=== PATIENT | male | born 1965 | race Two or more races ===

== ENCOUNTER 2024-12-07 09:51 | Inpatient (IN) | payer MEDICAID, OTHER ==
[~2024-12-07] VITALS: Ht 165.1 cm; Wt 75.5 kg
[2024-12-07 11:00] VITALS: PULSE 85; RESP 17; O2SAT 97
--- NOTE | 2024-12-07 11:11 | ED.PDOC ---
History of Present Illness HPI Comments 59 year old male presents to the ED with chief complaint of chest pain and dizziness. Patient reports that he has been experiencing chest pain with associated cough, dizziness, weakness, and pain behind the eyes for the past 15 days. Patient relays that he is currently not taking any medication and drinks ETOH daily. Patient denies any N/V/D, SOB, headache, abdominal pain, or fever. Chief Complaint: General Weakness Time Seen by MD: 11:08 Primary Care Provider: none Reviewed Notes: Nurses Notes, Medications, Allergies Allergies: Coded Allergies: NO KNOWN ALLERGIES (Unverified , 12/07/24) Information Source: Patient Mode of Arrival: Ambulatory Severity: Moderate Timing: Days Duration: Since onset Past Medical History PAST MEDICAL HISTORY: Denies Surgical History: Denies all surgeries Family History Family History: Reviewed,noncontributory to illness Social History Smoker: Non-Smoker Alcohol: Heavy Drugs: Denies Drug Use Lives In: Home Constitutional: reports: weakness; denies: chills, diaphoresis, fatigue, fever, malaise, sweats, others EENTM: reports: eye pain; denies: blurred vision, double vision, ear bleeding, ear discharge, ear drainage, ear pain, ear ringing, eye redness, hearing loss, mouth pain, mouth swelling, nasal discharge, nose bleeding, nose congestion, nose pain, photophobia, tearing, throat pain, throat swelling, voice changes, others Respiratory: reports: cough; denies: hemoptysis, orthopnea, SOB at rest, shortness of breath, SOB with excertion, stridor, wheezing, others Cardiovascular: reports: chest pain; denies: dizzy spells, diaphoresis, Dyspnea on exertion, edema, irregular heart beat, left arm pain, lightheadedness, palpitations, PND, syncope, others Gastrointestinal: denies: abdomen distended, abdominal pain, blood streaked bowels, constipated, diarrhea, dysphagia, difficulty swallowing, hematemesis, melena, nausea, poor appetite, poor fluid intake, rectal bleeding, rectal pain, vomiting, others Genitourinary: denies: burning, dysuria, flank pain, frequency, hematuria, incontinence, penile discharge, penile sore, pain, testicle pain, testicle swell ing, urgency, others Neurological: reports: dizziness; denies: fainting, headache, left sided numbness, left sided weakness, numbness, paresthesia, pre-existing deficit, right sided numbness, right sided weakness, seizure, speech problems, tingling, tremors, weakness, others Musculoskeletal: denies: back pain, gout, joint pain, joint swelling, muscle pain, muscle stiffness, neck pain, others Integumetry: denies: bruises, change in color, change in hair/nails, dryness, laceration, lesions, lumps, rash, wounds, others Allergic/Immunocompromised: denies: Difficulty Healing, Frequent Infections, Hives, Itching, others Hematologic/Lymphatic: denies: anemia, blood clots, easy bleeding, easy bruising, swollen glands, others Endocrine: denies: excessive hunger, excessive sweating, excessive thirst, excessive urination, flushing, intolerance to cold, intolerance to heat, unexplained weight gain, unexplained weight loss, others Psychiatric: denies: anxiety, bipolar disorder, depression, hopeless, panic disorder, schizophrenia, sleepless, suicidal, others All Other Systems: Reviewed and Negative Physical Exam General Appearance: Moderate Distress, Normal HEENT: Normal ENT Inspection, PERRL/EOMI Neck: Full Range of Motion, Non-Tender, Normal, Normal Inspection Respiratory: Chest Non-Tender, Lungs Clear, No Accessory Muscle Use, No Respiratory Distress, Normal Breath Sounds Cardiovascular: No Edema, No JVD, No Murmur, No Gallop, Normal Peripheral Pulses, Regular Rate/Rhythm Breast Exam: Deferred Gastrointestinal: No Organomegaly, Non Tender, No Pulsatile Mass, Normal Bowel Sounds, Soft Genitalia: Deferred Pelvic: Deferred Rectal: Deferred Extremities: No calf tenderness, Normal capillary refill, Normal inspection, Normal range of motion, Non-tender, No pedal edema Musculoskeletal : Apperance: Normal Neurologic: Alert, drapery estimator II-XII nml as Tested, No Motor Deficits, Normal Affect, Normal Mood, No Sensory Deficits Cerebellar Function: Normal Reflexes: Normal Skin: Dry, Normal Color, Warm Peripheral Pulses: 3+ Radial (R), 3+ Radial (L) Lymphatic: No Adenopathy Was a procedure done? Was a procedure done?: No Differential Dx Considerations may include: Anemia Electrolyte imbalance X-Ray, Labs, Meds, VS Vital Signs Date Time Temp Pulse Resp B/P (MAP) Pulse Ox O2 Delivery O2 Flow Rate FiO2 12/07/24 11:00 85 17 97 Room Air* 0 21 12/07/24 11:00 98.2 85 17 160/86 (110) 97 98.2 12/07/24 10:34 99.5 93 20 137/83 (101) 95 Lab Test 12/07/24 11:24 12/07/24 10:31 12/07/24 10:27 Range/Units White Blood Count Pending Red Blood Count Pending Hemoglobin Pending Hematocrit Pending Mean Corpuscular Volume Pending Mean Corpuscular Hemoglobin Pending Mean Corpuscular Hemoglobin Concent Pending Red Cell Distribution Width Pending Platelet Count Pending Mean Platelet Volume Pending Neutrophils (%) (Auto) Pending Lymphocytes (%) (Auto) Pending Monocytes (%) (Auto) Pending Basophils (%) (Auto) Pending Neutrophils # (Auto) Pending Lymphocytes # (Auto) Pending Monocytes # (Auto) Pending Sodium Level Pending Potassium Level Pending Chloride Level Pending Carbon Dioxide Level Pending Anion Gap Pending Blood Urea Nitrogen Pending Creatinine Pending Glomerular Filtration Rate Calc Pending BUN/Creatinine Ratio Pending Serum Glucose Pending Calcium Level Pending Troponin I High Sensitivity Pending POC Glucose 176 H 70-106 mg/dl Urine Color Pending Urine Clarity Pending Urine pH Pending Urine Specific [place] Pending Urine Protein Pending Urine Ketones Pending Urine Blood Pending Urine Nitrite Pending Urine Bilirubin Pending Urine Urobilinogen Pending Urine Leukocyte Esterase Pending Urine RBC Pending Urine Microscopic WBC Pending Urine Squamous Epithelial Cells Pending Urine Bacteria Pending Urine Glucose Pending Patient alert. Complaining of chest pain. Generalized weakness. Vitals stable. EKG reviewed does not show any acute changes. Blood sugar slightly elevated. Denies use of any medication. Blood pressure elevated. He does use alcohol. Cardiac risk factors. Was given aspirin. Echocardiogram. Cardiology consultation. Explained to the patient. Continue cardiac monitoring. Time of 1ST Reevaluation: 12:08 Reevaluation 1ST: Unchanged Patient Education/Counseling: Diagnosis, Treatment Family Education/Counseling: No Family Present Additional Information I reviewed the following notes from patient's past medical encounters: None The following tests were ordered, and results were reviewed by me: CBC, BMP, UA Additional Information was gathered from interviewing the following independent historians: None I reviewed and agreed with the following test results read by other providers: None I discussed treatment and results with medical personnel. Departure 1 Departure Time of Disposition: 11:41 Impression: Primary Impression: Chest pain of unknown etiology Additional Impressions: Hypertensive urgency Uncontrolled diabetes mellitus Qualified Codes: E13.65 - Other specified diabetes mellitus with hyperglycemia Disposition: ADMITTED INPATIENT Admit to: Med Surg Condition: Guarded Critical Care Note Critical Care Time?: Yes (45 min-critical care time only) Stability Stability form required: No Heart Score Heart Score: Heart Score Response (Comments) Value History Moderate Suspicious 1 EKG Normal 0 Age 45-64 1 Risk Factors 1 or 2 risk factors 1 Troponin Normal limit 0 Total 3 I personally scribed for PIPER MORRIS MD ([email or web address]) on 12/07/24 at 11:11. Electronically submitted by Kade Orozco ([email or web address]). PIPER MORRIS MD Dec 07, 2024 11:11
[2024-12-07 11:14] LABS: Urine Bacteria None Seen /hpf (None Seen)
[2024-12-07 11:19] LABS: Urine Blood Negative /uL (Negative); Urine Clarity Clear (Clear); Urine Color Yellow (Yellow); Urine Protein, UAD Negative (Negative); Urine Specific Gravity 1.012 (1.001-1.035); Urine Squamous Epithelial Cell FEW /hpf (<5); Urine Urobilinogen 4 mg/dL (Negative); Urine WBC 1 /HPF (0-3); Urine pH 6.5 (5.0-9.0)
[2024-12-07 11:43] LABS: Basophils # (auto) 0 10 ^3/uL (0-0.2); Eosinophils # (auto) 0.1 10 ^3/uL (0-0.8); Eosinophils % (auto) 0.7 % (0.0-7.0); Lymphocytes # (auto) 1.5 10 ^3/uL (0.4-5.4); Monocytes # (auto) 0.7 10 ^3/uL (0-1.3); Neutrophils # (auto) 4.8 10 ^3/uL (1.6-8.6); Platelet Count (auto) 87 10^3/uL (140-450); White Blood Cell 7.1 10^3/uL (4.4-10.8)
[2024-12-07 11:45] LABS: Basophils % (auto) 0.6 % (0.0-2.0); Hemoglobin 13.2 g/dL (13.5-17.5); Lymphocytes % (auto) 21.1 % (10.0-50.0); Mean Corpuscular Hemoglobin 37.9 pg (28.0-32.0); Mean Corpuscular Hgb Conc. 34.8 g/dL (32.0-36.0); Mean Corpuscular Volume 108.9 fL (80.0-100.0); Monocytes % (auto) 9.7 % (0.0-12.0); Neutrophils % (auto) 67.9 % (37.0-80.0); Nucleated Red Blood Cells % 0.4 %; Red Blood Cells 3.49 10^6/uL (4.5-5.90); Red Cell Distribution Width 14.8 % (11.8-14.3)
[2024-12-07 11:47] LABS: Chloride 104 mmol/L (98-107); Sodium 138 mmol/L (136-145)
[2024-12-07 11:48] LABS: Anion Gap 8 (5-15); Carbon Dioxide 26 mmol/L (20-31)
[2024-12-07 12:01] LABS: BUN/Creatinine Ratio 8.6 (10.0-20.0); Blood Urea Nitrogen < 5 mg/dL (9-23); Calcium 8.6 mg/dL (8.7-10.4); Glucose 125 mg/dL (74-106); Potassium 3.5 mmol/L (3.5-5.1)
[2024-12-07] MEDS: ASPirin 325 MG TAB PO ONE (12:08)
[2024-12-07] MEDS: cloNIDine HCL 0.1 MG TAB PO ONE (12:09)
[2024-12-07] MEDS ORDERED: ONDANSETRON HCL 4 MG/2 ML VIAL IV PRN (15:45)
[2024-12-07] MEDS ORDERED: ACETAMINOPHEN 325 MG TAB PO PRN (15:45)
[2024-12-07] MEDS ORDERED: MORPHINE SULFATE INJ 2 MG/ml SYRG IV PRN (15:45)
[2024-12-07] MEDS ORDERED: NITROGLYCERIN 0.4 MG SL TAB SL PRN (15:45)
--- NOTE | 2024-12-07 15:57 | DVHHP2 ---
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 Patient also reports weakness, flu, cough, palpitations, and diarrhea. Patient states that he has been having blurry vision and it is hard for him to see after 5:00 p.m. Upon examination his eyes were bloodshot red and he states that when he gets sick or cough it happens. Patient also reports that he drinks 1 beer a day, does not use illicit drugs, and does not smoke. Patient denies any recent sick contacts, fever, chills, headaches, and recent trauma or injury. Past Surgical History: Other (Dental work in [place]) Family History: None Smoke: No ALCOHOL: occassional Drugs: None Lives: Roommate Domestic Violence: Neg Review of Systems Constitutional: Yes: Weakness, Other (Dizziness); No: Fever, Chills, Sweats, Malaise Eyes: Pain, Vision change, Redness; No: Conjunctivae inflammation, Eyelid inflammation, Other ENT: No: Ear pain, Ear discharge, Nose pain, Nose discharge, Nose congestion, Mouth pain, Mouth swelling, Throat pain, Throat swelling, Other Respiratory: Cough; No: Dry, Shortness of breath, SOB with excertion, Wheezing, Hemoptysis, Pleuritic Pain, Sputum, Wheezing, Other Cardiovascular: Chest Pain, Palpitations; No: Orthopnea, Paroxysmal Noc. Dyspnea, Edema, Lt Headedness, Other Gastrointestinal: Nausea, Vomiting, Diarrhea; No: Abdominal Pain, Constipation, Melena, Hematochezia, Other Genitourinary: No Dysuria, No Frequency, No Incontinence, No Hematuria, No Retention, No Other Musculoskeletal: No: other, neck pain, shoulder pain, arm pain, back pain, hand pain, leg pain, foot pain Skin: No: Rash, Lesions, Jaundice, Bruising, Other Neurological: No: Weakness, Numbness, Incoordination, Change in speech, Confusion, Seizures, Other Allergies: Coded Allergies: NO KNOWN ALLERGIES (Unverified , 12/07/24) Exam Vital Signs Vital Signs Date Time Temp Pulse Resp B/P (MAP) Pulse Ox O2 Delivery O2 Flow Rate FiO2 12/07/24 13:50 98.3 76 18 141/79 (99) 98 98.3 12/07/24 11:00 Room Air* 0 21 General Appearance: Alert, Oriented X3, Cooperative, No acute distress HEENT: Atraumatic, PERRLA, EOMI, Mucous membr. moist/pink Respiratory: Clear to auscultation, Normal air movement Cardiovascular: Regular rate, Normal S1, Normal S2, No murmurs Abdominal: Normal bowel sounds, Soft, No tenderness, No hepatospenomegaly, No masses Extremities: No clubbing, No cyanosis, No edema, Normal pulses, No tenderness/swelling Skin: No rashes, No breakdown, No significant lesion Neuro: Normal gait, Normal speech, Strength at 5/5 X4 ext, Normal tone, Sensation intact Psych/Mental Status: Mental status NL, Mood NL Labs/Xrays Labs Test 12/07/24 11:24 12/07/24 10:31 12/07/24 10:27 Range/Units White Blood Count 7.1 4.4-10.8 10^3/uL Red Blood Count 3.49 L 4.5-5.90 10^6/uL Hemoglobin 13.2 L 13.5-17.5 g/dL Hematocrit 38.0 L 41.0-53.0 % Mean Corpuscular Volume 108.9 H 80.0-100.0 fL Mean Corpuscular Hemoglobin 37.9 H 28.0-32.0 pg Mean Corpuscular Hemoglobin Concent 34.8 32.0-36.0 g/dL Red Cell Distribution Width 14.8 H 11.8-14.3 % Platelet Count 87 L 140-450 10^3/uL Mean Platelet Volume 7.4 6.9-10.8 fL Neutrophils (%) (Auto) 67.9 37.0-80.0 % Lymphocytes (%) (Auto) 21.1 10.0-50.0 % Monocytes (%) (Auto) 9.7 0.0-12.0 % Eosinophils (%) (Auto) 0.7 0.0-7.0 % Basophils (%) (Auto) 0.6 0.0-2.0 % Neutrophils # (Auto) 4.8 1.6-8.6 10 ^3/uL Lymphocytes # (Auto) 1.5 0.4-5.4 10 ^3/uL Monocytes # (Auto) 0.7 0-1.3 10 ^3/uL Eosinophils # (Auto) 0.1 0-0.8 10 ^3/uL Basophils # (Auto) 0 0-0.2 10 ^3/uL Nucleated Red Blood Cells 0.4 % Sodium Level 138 136-145 mmol/L Potassium Level 3.5 3.5-5.1 mmol/L Chloride Level 104 98-107 mmol/L Carbon Dioxide Level 26 20-31 mmol/L Anion Gap 8 5-15 Blood Urea Nitrogen < 5 L 9-23 mg/dL Creatinine 0.58 L 0.700-1.30 mg/dL Glomerular Filtration Rate Calc 114 >90 mL/min BUN/Creatinine Ratio 8.6 L 10.0-20.0 Serum Glucose 125 H 74-106 mg/dL Calcium Level 8.6 L 8.7-10.4 mg/dL Troponin I High Sensitivity 3 L </=54 ng/L POC Glucose 176 H 70-106 mg/dl Urine Color Yellow Yellow Urine Clarity Clear Clear Urine pH 6.5 5.0-9.0 Urine Specific [place] 1.012 1.001-1.035 Urine Protein Negative Negative Urine Ketones Negative Negative Urine Blood Negative Negative /uL Urine Nitrite Negative Negative Urine Bilirubin Negative Negative Urine Urobilinogen 4 H Negative mg/dL Urine Leukocyte Esterase Negative Negative /uL Urine RBC 1 0 - 3 /hpf Urine Microscopic WBC 1 0-3 /HPF Urine Squamous Epithelial Cells Few <5 /hpf Urine Bacteria None seen None Seen /hpf Urine Glucose 1+ H Normal mg/dL Assessment/Plan Assessment/Plan Assessment/Plan: Chest pain rule out cardiac ischemia Palpitations Blurred vision Thrombocytopenia Labs Chest x-ray UA Antihypertensive Aspirin given in ED Troponin negative Influenza test COVID test TSH Lipid panel UDS CT head Echo ACS protocol FOUZIA A.m. labs Rounding team to consider cardiac consult if suspecting cardiac structural changes Hyperglycemia Hemoglobin A1c ISS and Accu-Cheks FEN/PPX Diet Hep-Lock DVT ppx - not indicated patient ambulating PUD prophylaxis not indicated patient no history of GI bleed or GERD Discussed plan of care with patient and nurse No home medications to reconcile Admit to tele Plan discussed with: Patient My Orders Orders - DEMARCUS SIGALA COMBINE DRIVER Procedure Category Date Status Time Head Without Contrast CT 12/07/24 Logged 15:35 Rapid Influenza A&B LAB 12/07/24 Transmitted 15:35 Covid19 Antigen Maia LAB 12/07/24 Transmitted Blood Alcohol LAB 12/07/24 Transmitted 15:35 Admit ADMIT 12/07/24 Transmitted 15:35 Allergies LATONIA 12/07/24 Transmitted 15:35 Code Status CODE 12/07/24 Transmitted 15:35 Ondansetron Hcl PHA 12/07/24 Logged (Zofran) 15:45 Complete Blood Count LAB 12/08/24 Verified 04:00 Comprehensive LAB 12/08/24 Verified Metabolic Panel 04:00 Cardiac DIET 12/07/24 Transmitted Diet-2gna,Lofat,Lochol Dinner Acetaminophen Tablet PHA 12/07/24 Logged (Tylenol Tablet) 15:45 Nitroglycerin PHA 12/07/24 Logged Sublingual (Ntrostat 15:45 Morphine Sulfate PHA 12/07/24 Transmitted Injection 15:45 Stat Ekg For Chest [facility] 12/07/24 Transmitted Pain 15:35 Notify Md Of Changes [facility] 12/07/24 Transmitted From Base 15:35 Caramel Candy Maker For [facility] 12/07/24 Transmitted 24 Hours 15:35 Emergency Dysrhythmia [facility] 12/07/24 Transmitted Protocol 15:35 Rhythm Strips Once [facility] 12/07/24 Transmitted Every Shift 15:35 Oxygen By Nasal RT 12/07/24 Transmitted Cannula 15:35 Thyroid Stimulating LAB 12/07/24 Transmitted Hormone 15:35 Drug Screen LAB 12/07/24 Transmitted 15:35 Lipid Panel LAB 12/07/24 Transmitted 15:35 Echo 2d Mode Cardiac US 12/07/24 Logged DOP 15:35 Atorvastatin (Lipitor) PHA 12/07/24 Transmitted 22:00 Date of Service: Dec 07, 2024 Billing Provider: DEMARCUS SIGALA Common Visit Codes: [id number] INP/OBS CARE (HIGH) DEMARCUS SIGALA Dec 07, 2024 15:57
--- NOTE | 2024-12-07 16:07 | DVH ---
EXAM: CT HEAD WITHOUT CONTRAST HISTORY: dizziness COMPARISON: None TECHNIQUE: Axial images of the head were obtained and reformatted in coronal and sagittal planes. All CT scans at this medical facility are performed using dose modulation techniques as appropriate t o a performed exam including the following: Automated exposure control was utilized; adjustment of th e MA and/or KV according to patient size; and use of iterative reconstruction technique. CT Dose: CTDI volume is 54.63 mGy. Dose-length product is 967.38 mGy*cm FINDINGS: There is no evidence of acute intracranial hemorrhage, mass, mass effect midline shift. There is no h ydrocephalus or extra-axial fluid collection. Tang-white matter differentiation is maintained. The visualized paranasal sinuses and mastoid air cells are clear. The calvarium is intact. IMPRESSION: 1. No acute intracranial process. HS:Y
--- NOTE | 2024-12-07 16:14 | DVH ---
CHEST RADIOGRAPH Indication: chest pain Technique: Single frontal view of the chest was obtained Comparison: None FINDINGS: Lines and Tubes: None Lungs: Probable hiatal hernia in the retrocardiac area. Pleura: No effusion. No pneumothorax. Cardiomediastinal contours: Unremarkable Bones: No acute osseous abnormality. IMPRESSION: 1. No acute cardiopulmonary disease. 2. Probable hilar hernia in the retrocardiac area.
[2024-12-07 16:49] LABS: Blood Alcohol 72.3 mg/dL (<10)
[2024-12-07 20:10] VITALS: PULSE 70; RESP 16; O2SAT 97
[2024-12-07 20:40] LABS: COVID19 ANTIGEN SOFIA FIA NEGATIVE (NEGATIVE); Rapid Influenza A Negative (Negative); Rapid Influenza B Negative (Negative)
[2024-12-07] MEDS: ATORVASTATIN 20 MG TAB PO SCH (23:53)
[2024-12-08] VITALS (9 sets, daily range): BP systolic 131–150; BP diastolic 49–82; PULSE 77–88; RESP 17–93; TEMP 98–99.5; O2SAT 93–98
[2024-12-08 05:42] LABS: Basophils # (auto) 0 10 ^3/uL (0-0.2); Basophils % (auto) 0.4 % (0.0-2.0); Eosinophils # (auto) 0.1 10 ^3/uL (0-0.8); Eosinophils % (auto) 1.7 % (0.0-7.0); Lymphocytes # (auto) 1.5 10 ^3/uL (0.4-5.4); Monocytes # (auto) 0.6 10 ^3/uL (0-1.3); Neutrophils # (auto) 3.6 10 ^3/uL (1.6-8.6); White Blood Cell 5.8 10^3/uL (4.4-10.8)
[2024-12-08 05:45] LABS: Lymphocytes % (auto) 25.4 % (10.0-50.0); Mean Corpuscular Hemoglobin 38.5 pg (28.0-32.0); Mean Corpuscular Hgb Conc. 35.3 g/dL (32.0-36.0); Mean Corpuscular Volume 108.8 fL (80.0-100.0); Monocytes % (auto) 10.8 % (0.0-12.0); Neutrophils % (auto) 61.7 % (37.0-80.0); Nucleated Red Blood Cells % 0.3 %; Platelet Count (auto) 70 10^3/uL (140-450); Red Blood Cells 3.13 10^6/uL (4.5-5.90); Red Cell Distribution Width 14.6 % (11.8-14.3)
[2024-12-08 05:57] LABS: Alanine Aminotransferase 20 U/L (7-40); Anion Gap 4 (5-15); Carbon Dioxide 26 mmol/L (20-31); Chloride 106 mmol/L (98-107); Glucose 100 mg/dL (74-106); Sodium 136 mmol/L (136-145)
[2024-12-08 05:58] LABS: Total Protein 6.5 g/dL (5.7-8.2)
[2024-12-08 06:03] LABS: Albumin 2.6 g/dL (3.2-4.8); Alkaline Phosphatase 246 U/L (46-116); Aspartate Aminotransferase 90 U/L (13-40); BUN/Creatinine Ratio 9.8 (10.0-20.0); Bilirubin, Total 3.7 mg/dL (0.2-1.0); Blood Urea Nitrogen < 5 mg/dL (9-23); Calcium 8.3 mg/dL (8.7-10.4)
--- NOTE | 2024-12-08 12:32 | DVHSR ---
APPROVED REPORT EXAM: Two-dimensional and M-mode echocardiogram with Doppler and color Doppler. Blood Pressure: 141/79 mmHg INDICATION Chest Pain RISK FACTORS Height: 5'5", Weight: 171 DIMENSIONS LVDd4.6 (3.8-5.7cm)LA (2D)5.0 (1.9-4.0cm)Aortic Root3.0 (2.0-3.7cm) LVDs3.2 (2.5-4.0cm)LA (MM) (1.9-4.0cm)Aortic Cusp Exc1.5 (1.5-2.0cm) EF (%) 60.0 (55-70%)Rt. Atrium4.5 (1.9-4.0cm)Asc. Aorta cm IVSd0.9 (0.7-1.1cm)RV (D) (1.8-2.4cm) PWd1.0 (0.7-1.1cm) Mitral Valve MitralMitral Stenosis E wave1.08m/sMV Mean GR.mmHg A wave0.73m/sMV Peak GR.mmHg E/A ratio1.52D MVAcm2 DECEL [id number] 1/2 Timems Aortic Valve Aortic ValveAortic Stenosis V11.16m/Navin Mean GR.7mmHg V21.79m/Navin Peak GR.13mmHg LVOT Diameter1.8 (1.8-2.4cm)Doppler AVA1.65cm2 Pulmonic Valve V21.13m/s Tricuspid Valve TR Velocity3.13m/s [id number] LEFT VENTRICLE The left ventricle is of normal size. Wall thickness is normal. Ejection fraction is normal and is estimated at 60-65%. There is grade II diastolic dysfunction. E to E prime ratio is in the indeterm inate range. RIGHT VENTRICLE The right ventricle is mildly to moderately dilated in size. Systolic function is normal. ATRIA The left atrium is moderately dilated in size. Right atrium is moderately dilated in size. Not well visualized. MITRAL VALVE Normal structure and function. No significant mitral regurgitation. PULMONIC VALVE Likely normal. TRICUSPID VALVE Normal structure and function. There is mild tricuspid regurgitation. PA systolic pressure is estim ated at 40-50 mm Hg. AORTIC VALVE Normal in structure and function. GREAT VESSELS The aortic root is of normal size. Proximal ascending aorta is not visualized. PERICARDIAL EFFUSION No significant pericardial effusion. IVC is not well visualized. Conclusion The study is technically limited. Normal left ventricular size and systolic function. Ejection fraction is estimated at 60-65%. Dilated right ventricle with preserved systolic function. Biatrial enlargement. Grade II diastolic dysfunction. No hemodynamically significant valvular disease. PA systolic pressure is estimated at 40-50 mm Hg.
--- NOTE | 2024-12-08 14:25 | DVHPNRES ---
Progress Note Objective vital signs Vital Sign Date Time Temp Pulse Resp B/P (MAP) Pulse Ox O2 Delivery O2 Flow Rate FiO2 12/08/24 13:00 98.6 80 17 144/67 (92) 95 98.6 12/08/24 08:00 Room Air* 0 21 Total Intake and Output 12/07/24 12/07/24 12/08/24 15:00 23:00 07:00 Intake Total 0 ml Balance 0 ml medications Current Medications Medications Dose Ordered Sig/Yue Route Start Time Stop Time Status Last Admin Dose Admin Ondansetron HCl 4 mg Q4HP PRN IV 12/07/24 15:45 Acetaminophen 650 mg Q6HP PRN PO 12/07/24 15:45 Nitroglycerin 0.4 mg Q5MINP PRN SL 12/07/24 15:45 Morphine Sulfate 2 mg Q30M PRN IV 12/07/24 15:45 Atorvastatin Calcium 10 mg HS PO 12/07/24 22:00 12/07/24 23:53 10 MG Losartan Potassium 50 mg DAILY PO 12/09/24 10:00 laboratory and microbiology Laboratory Tests 12/08/24 05:20 Test 12/08/24 05:20 Range/Units Serum Glucose 100 74-106 mg/dL My Orders My Orders Orders - DEON BALDWIN Procedure Category Date Status Time LIVER US 12/08/24 Taken 09:01 Electrocardigram EKG 12/08/24 Logged 09:03 Losartan Tablet PHA 12/09/24 In Process (Cozaar Tablet) 10:00 DEON BALDWIN RESIDENT Dec 08, 2024 14:25
--- NOTE | 2024-12-08 14:31 | DVH ---
INDICATION: rule out cirrhosis TECHNIQUE: Multiple real-time sonographic images of the abdomen were obtained. COMPARISON: None FINDINGS: Increased echogenicity of the hepatic parenchyma suggesting steatosis. Ascites right upper quadrant The liver measures 19.3 cm. No intrahepatic biliary ductal dilatation is noted. The gallbladder wall measures 11.6 mm and is thickened. No gallstones or sludge is seen. The commo n duct measures 0.48 cm and is unremarkable. No pericholecystic fluid is noted. Negative ultrasound Zhou's sign Right kidney measures 11.9 cm. The pancreas is normal with ultrasound appearance IMPRESSION: 1. Hepatomegaly 19.3 cm with parenchymal changes suggesting steatosis. 2. Gallbladder wall thickening. Most likely due to a small amount of ascites in the right upper quadr ant No cholelithiasis. Negative ultrasound zhou's sign. 3. Ascites right upper quadrant
--- NOTE | 2024-12-08 14:33 | ECG ---
[facility] Test Date: 2024-12-08 Test Time: 13:06:34 Pat Name: AZAR HUMPHREYS Department: Respiratoy Room: 0214T A Gender: M Beef Cattle Farmer: tt : 1965 Requested By: DEON DIAZ Order Number: [id number] Reading MD: Isaias Borden Measurements Intervals [place] Rate: 84 P: 45 VA: 154 QRS: 15 QRSD: 94 T: 36 QT: 368 QTc: 436 Interpretive Statements Sinus rhythm Probable left atrial enlargement Electronically Signed On 12-09-2024 8:14:24 PST by Isaias Borden Please click the below link to view image of tracing.
--- NOTE | 2024-12-08 16:18 | DVHPNRES ---
Progress Note Date Seen: Dec 08, 2024 Resident Creating Document: DEON BALDWIN RESIDENT Has the PT tested + for MRSA If YES, has PT been informed?: No Medical Necessity Reason Pt with a Central, PICC or Fol: No Subjective Review of Systems A 59y old male with no PMHx. who came to the ED due to chest pain in his left hemithorax. The pain is reproducible when he move the shoulder and the arm. No dyspnea. NYHA I. Pt also stated nausea, vomiting, diarrhea, dizziness, orbital pain x1 day, weakness, flu, cough and diarrhea. Patient also reports that he drinks 1 beer a day, does not use illicit drugs, and does not smoke. Patient denies any recent sick contacts, fever, chills, headaches, and recent trauma or injury. Objective vital signs Vital Sign Date Time Temp Pulse Resp B/P (MAP) Pulse Ox O2 Delivery O2 Flow Rate FiO2 12/08/24 13:00 98.6 80 17 144/67 (92) 95 98.6 12/08/24 08:00 Room Air* 0 21 Total Intake and Output 12/07/24 12/07/24 12/08/24 15:00 23:00 07:00 Intake Total 0 ml Balance 0 ml medications Current Medications Medications Dose Ordered Sig/Yue Route Start Time Stop Time Status Last Admin Dose Admin Ondansetron HCl 4 mg Q4HP PRN IV 12/07/24 15:45 Acetaminophen 650 mg Q6HP PRN PO 12/07/24 15:45 Nitroglycerin 0.4 mg Q5MINP PRN SL 12/07/24 15:45 Morphine Sulfate 2 mg Q30M PRN IV 12/07/24 15:45 Atorvastatin Calcium 10 mg HS PO 12/07/24 22:00 12/07/24 23:53 10 MG Losartan Potassium 50 mg DAILY PO 12/09/24 10:00 Examination General Appearance: Alert, Oriented X3, Cooperative, No acute distress HEENT: Atraumatic, PERRLA, EOMI, Mucous membr. moist/pink Respiratory: Clear to auscultation, Normal air movement Cardiovascular: Regular rate, Normal S1, Normal S2, No murmurs Abdominal: Normal bowel sounds, Soft, No tenderness, No hepatospenomegaly, No masses Extremities: No clubbing, No cyanosis, No edema, Normal pulses, No tenderness/swelling Skin: No rashes, No breakdown, No significant lesion Neuro: Normal gait, Normal speech, Strength at 5/5 X4 ext, Normal tone, Sensation intact Psych/Mental Status: Mental status NL, Mood NL laboratory and microbiology Laboratory Tests 12/08/24 05:20 Test 12/08/24 05:20 Range/Units Serum Glucose 100 74-106 mg/dL Problem List/Assessment/Plan Problem List/Assessment/Plan #Chest pain likely musculoskeletal #ACS ruled out #Hypertensive heart disease with diastolic dysfunction # Pulmonary hypertension #Biatrial enlargement #Possible viral pneumonitis #Possible acute gastroenteritis #Transaminitis #Esteatohepatitis #Hypoalbuminemia #Ascites Cardiac diet ECHO done Troponins neg EKG normal Start losartan 50 mg Start furosemide due to ascites present in US Possible DC tomorrow Case discussed with Dr Banks Time spent on care 23 min Plan discussed with: Patient, Other (rn) My Orders My Orders Orders - DEON BALDWIN Procedure Category Date Status Time LIVER US 12/08/24 Resulted 09:01 Losartan Tablet PHA 12/09/24 In Process (Cozaar Tablet) 10:00 Date of Service: Dec 08, 2024 Billing Provider: NELL BANKS MD Common Visit Codes: [id number] INP/OBS CARE(HIGH) DEON BALDWIN RESIDENT Dec 08, 2024 16:18 NELL BANKS MD Dec 08, 2024 22:42
[2024-12-08] MEDS: FUROSEMIDE 40 MG/4 ML VIAL IV ONE (16:34)
[2024-12-09 00:54] VITALS: BP 114/55; PULSE 75; RESP 17; TEMP 99.4; O2SAT 97
[2024-12-09 05:22] VITALS: BP 129/65; PULSE 79; RESP 18; TEMP 98.4; O2SAT 94
[2024-12-09 06:23] LABS: Basophils # (auto) 0 10 ^3/uL (0-0.2); Basophils % (auto) 0.4 % (0.0-2.0); Eosinophils # (auto) 0.1 10 ^3/uL (0-0.8); Hematocrit 34.8 % (41.0-53.0); Hemoglobin 12.2 g/dL (13.5-17.5); Lymphocytes # (auto) 1.7 10 ^3/uL (0.4-5.4); Lymphocytes % (auto) 27.8 % (10.0-50.0); Mean Corpuscular Hemoglobin 38.1 pg (28.0-32.0); Mean Corpuscular Volume 108.9 fL (80.0-100.0); Monocytes # (auto) 0.6 10 ^3/uL (0-1.3); Monocytes % (auto) 9.5 % (0.0-12.0); Neutrophils # (auto) 3.7 10 ^3/uL (1.6-8.6); Neutrophils % (auto) 60.3 % (37.0-80.0); Platelet Count (auto) 74 10^3/uL (140-450); Red Blood Cells 3.19 10^6/uL (4.5-5.90); Red Cell Distribution Width 14.7 % (11.8-14.3); White Blood Cell 6.2 10^3/uL (4.4-10.8)
[2024-12-09 06:37] LABS: Alanine Aminotransferase 18 U/L (7-40); Alkaline Phosphatase 234 U/L (46-116); Anion Gap 5 (5-15); BUN/Creatinine Ratio 11.5 (10.0-20.0); Blood Urea Nitrogen 7 mg/dL (9-23); Calcium 8.2 mg/dL (8.7-10.4); Carbon Dioxide 25 mmol/L (20-31); Chloride 107 mmol/L (98-107); Glucose 96 mg/dL (74-106); Potassium 3.9 mmol/L (3.5-5.1); Sodium 137 mmol/L (136-145)
[2024-12-09 06:38] LABS: Albumin 2.8 g/dL (3.2-4.8); Aspartate Aminotransferase 75 U/L (13-40); Total Protein 6.6 g/dL (5.7-8.2)
[2024-12-09 08:00] VITALS: PULSE 70; RESP 20; O2SAT 98
[2024-12-09 08:44] VITALS: BP 133/73; PULSE 78; RESP 16; TEMP 98.2; O2SAT 95
[2024-12-09] MEDS ORDERED: EMPA1TAB PO (09:06)
[2024-12-09] MEDS ORDERED: LOSA-534 PO (09:06)
[2024-12-09] MEDS: LOSARTAN POTASSIUM 50 MG TAB PO SCH (09:27)
[2024-12-09 13:00] VITALS: BP 154/83; PULSE 86; RESP 17; TEMP 98; O2SAT 96
--- NOTE | 2024-12-10 06:53 | DVHDSRES ---
Discharge Summary Date of Admission Resident Creating Document: DEON BALDWIN RESIDENT Dec 07, 2024 at 15:35 Date of Discharge: Dec 09, 2024 Admitting Diagnosis #Chest pain likely musculoskeletal #ACS ruled out Labs/Diagnostic Data: Laboratory Results Test 12/09/24 05:25 12/08/24 05:20 12/07/24 19:45 12/07/24 16:15 White Blood Count 6.2 10^3/uL (4.4-10.8) Red Blood Count 3.19 10^6/uL (4.5-5.90) Hemoglobin 12.2 g/dL (13.5-17.5) Hematocrit 34.8 % (41.0-53.0) Mean Corpuscular Volume 108.9 fL (80.0-100.0) Mean Corpuscular Hemoglobin 38.1 pg (28.0-32.0) Mean Corpuscular Hemoglobin Concent 35.0 g/dL (32.0-36.0) Red Cell Distribution Width 14.7 % (11.8-14.3) Platelet Count 74 10^3/uL (140-450) Mean Platelet Volume 7.8 fL (6.9-10.8) Neutrophils (%) (Auto) 60.3 % (37.0-80.0) Lymphocytes (%) (Auto) 27.8 % (10.0-50.0) Monocytes (%) (Auto) 9.5 % (0.0-12.0) Eosinophils (%) (Auto) 2.0 % (0.0-7.0) Basophils (%) (Auto) 0.4 % (0.0-2.0) Neutrophils # (Auto) 3.7 10 ^3/uL (1.6-8.6) Lymphocytes # (Auto) 1.7 10 ^3/uL (0.4-5.4) Monocytes # (Auto) 0.6 10 ^3/uL (0-1.3) Eosinophils # (Auto) 0.1 10 ^3/uL (0-0.8) Basophils # (Auto) 0 10 ^3/uL (0-0.2) Nucleated Red Blood Cells 0.0 % Sodium Level 137 mmol/L (136-145) Potassium Level 3.9 mmol/L (3.5-5.1) Chloride Level 107 mmol/L (98-107) Carbon Dioxide Level 25 mmol/L (20-31) Anion Gap 5 (5-15) Blood Urea Nitrogen 7 mg/dL (9-23) Creatinine 0.61 mg/dL (0.700-1.30) Glomerular Filtration Rate Calc 112 mL/min (>90) BUN/Creatinine Ratio 11.5 (10.0-20.0) Serum Glucose 96 mg/dL (74-106) Calcium Level 8.2 mg/dL (8.7-10.4) Total Bilirubin 4.0 mg/dL (0.2-1.0) Aspartate Amino Transferase (AST) 75 U/L (13-40) Alanine Aminotransferase (ALT) 18 U/L (7-40) Alkaline Phosphatase 234 U/L (46-116) Total Protein 6.6 g/dL (5.7-8.2) Albumin 2.8 g/dL (3.2-4.8) Hemoglobin A1c 4.9 % A1C (<5.7) Influenza Type A Antigen Negative (Negative) Influenza Type B Antigen Negative (Negative) SARS-CoV-2 Antigen (Rapid) Negative (NEGATIVE) Triglycerides Level 93 mg/dL (< 150) Cholesterol Level 131 mg/dL (< 200) LDL Cholesterol 66 mg/dL (< 100) HDL Cholesterol 35 mg/dL (40-59) Thyroid Stimulating Hormone (TSH) 4.51 uIU/mL (0.55-4.78) Plasma/Serum Blood Alcohol 72.3 mg/dL (<10) Test 12/07/24 11:24 12/07/24 10:31 12/07/24 10:27 Troponin I High Sensitivity 3 ng/L (</=54) POC Glucose 176 mg/dl (70-106) Urine Color Yellow (Yellow) Urine Clarity Clear (Clear) Urine pH 6.5 (5.0-9.0) Urine Specific [place] 1.012 (1.001-1.035) Urine Protein Negative (Negative) Urine Ketones Negative (Negative) Urine Blood Negative /uL (Negative) Urine Nitrite Negative (Negative) Urine Bilirubin Negative (Negative) Urine Urobilinogen 4 mg/dL (Negative) Urine Leukocyte Esterase Negative /uL (Negative) Urine RBC 1 /hpf (0 - 3) Urine Microscopic WBC 1 /HPF (0-3) Urine Squamous Epithelial Cells Few /hpf (<5) Urine Bacteria None seen /hpf (None Seen) Urine Glucose 1+ mg/dL (Normal) Other Laboratory Tests 12/09/24 05:25 Brief Hx & Hospital Course: A 59-year-old male with no significant past medical history presented to the emergency department with left-sided chest pain reproducible with movement of the shoulder and arm, associated with nausea, vomiting, diarrhea, dizziness, and orbital pain, explained by possible viral gastroenteritis. The patient denied dyspnea, sick contacts, fever, chills, or recent trauma. He reported drinking one beer per day, no smoking, and no illicit drug use. Vital signs on admission were stable, and physical examination was unremarkable except for localized musculoskeletal chest pain. The patient was evaluated for acute coronary syndrome, which was ruled out with negative troponins, a normal electrocardiogram, and an echocardiogram. Additional findings included hypertensive heart disease with diastolic dysfunction, pulmonary hypertension, biatrial enlargement, and transaminitis. Imaging and laboratory showed, steatohepatitis, hypoalbuminemia, and ascites. The patient was started on a cardiac diet, losartan 50 mg for blood pressure management, and furosemide for symptomatic ascites. The patient showed clinical improvement and was deemed stable for discharge. He will follow up with his primary care provider for ongoing management, including further evaluation of transaminitis and pulmonary hypertension. General Appearance: Alert, Oriented X3, Cooperative, No acute distress HEENT: Atraumatic, PERRLA, EOMI, Mucous membr. moist/pink Respiratory: Clear to auscultation, Normal air movement Cardiovascular: Regular rate, Normal S1, Normal S2, No murmurs Abdominal: Normal bowel sounds, Soft, No tenderness, No hepatospenomegaly, No masses Extremities: No clubbing, No cyanosis, No edema, Normal pulses, No tenderness/swelling Skin: No rashes, No breakdown, No significant lesion Neuro: Normal gait, Normal speech, Strength at 5/5 X4 ext, Normal tone, Sensation intact Psych/Mental Status: Mental status NL, Mood NL Case discussed with Dr Banks Time spent on care 23 min Operations or Procedures EXAM: Two-dimensional and M-mode echocardiogram with Doppler and color Doppler. Blood Pressure: 141/79 mmHg INDICATION Chest Pain RISK FACTORS Height: 5'5", Weight: 171 DIMENSIONS LVDd 4.6 (3.8-5.7cm) LA (2D) 5.0 (1.9-4.0cm) Aortic Root 3.0 (2.0- 3.7cm) LVDs 3.2 (2.5-4.0cm) LA (MM) (1.9-4.0cm) Aortic Cusp Exc 1.5 (1.5- 2.0cm) EF (%) 60.0 (55-70%) Rt. Atrium 4.5 (1.9-4.0cm) Asc. Aorta cm IVSd 0.9 (0.7-1.1cm) RV (D) (1.8-2.4cm) PWd 1.0 (0.7-1.1cm) Mitral Valve Mitral Mitral Stenosis E wave 1.08m/s MV Mean GR. mmHg A wave 0.73m/s MV Peak GR. mmHg E/A ratio 1.5 2D MVA cm2 DECEL Time 235ms PRESS 1/2 Time ms Aortic Valve Aortic Valve Aortic Stenosis V1 1.16m/s AO Mean GR. 7mmHg V2 1.79m/s AO Peak GR. 13mmHg LVOT Diameter 1.8 (1.8-2.4cm) Doppler LIZZETTE 1.65cm2 Pulmonic Valve V2 1.13m/s Tricuspid Valve TR Velocity 3.13m/s RVSP 47mmHg LEFT VENTRICLE The left ventricle is of normal size. Wall thickness is normal. Ejection fraction is normal and is estimated at 60-65%. There is grade II diastolic dysfunction. E to E prime ratio is in the indeterminate range. RIGHT VENTRICLE The right ventricle is mildly to moderately dilated in size. Systolic function is normal. ATRIA The left atrium is moderately dilated in size. Right atrium is moderately dilated in size. Not well visualized. MITRAL VALVE Normal structure and function. No significant mitral regurgitation. PULMONIC VALVE Likely normal. TRICUSPID VALVE Normal structure and function. There is mild tricuspid regurgitation. PA systolic pressure is estimated at 40-50 mm Hg. AORTIC VALVE Normal in structure and function. GREAT VESSELS The aortic root is of normal size. Proximal ascending aorta is not visualized. PERICARDIAL EFFUSION No significant pericardial effusion. IVC is not well visualized. Conclusion The study is technically limited. Normal left ventricular size and systolic function. Ejection fraction is estimated at 60-65%. Dilated right ventricle with preserved systolic function. Biatrial enlargement. Grade II diastolic dysfunction. No hemodynamically significant valvular disease. PA systolic pressure is estimated at 40-50 mm Hg. Condition at Discharge: Stable Final Diagnosis/Problems List #Chest pain likely musculoskeletal #ACS ruled out #Hypertensive heart disease with diastolic dysfunction # Pulmonary hypertension #Biatrial enlargement #Possible acute gastroenteritis #Transaminitis #Esteatohepatitis #Hypoalbuminemia #Ascites Discharge Disposition: Home Discharge Instruct/Medications Diet: Cardiac 2g Na,low cholest Activity: Light activity Follow Up/Referral: dc clinic Medications: see prescription Discharge Statement: "Patient was advised to return to the ER or call 911 if any headaches, dizziness, shortness of breath, chest pain, abdominal pain, bleeding, fevers, or worsening of medical condition. Patient was counseled about treatment plan, medications, possible side effects, patientverbalized understanding. All questions were answered to the best of my ability. This discharge took greater then 30 minutes in planning, reviewing documentation, counseling the patient, and discussing with other team members." ASSESSMENT ASSESSMENT Assessment #Chest pain likely musculoskeletal #ACS ruled out #Hypertensive heart disease with diastolic dysfunction # Pulmonary hypertension #Biatrial enlargement #Possible viral pneumonitis #Possible acute gastroenteritis #Transaminitis #Esteatohepatitis #Hypoalbuminemia #Ascites Date of Service: Dec 09, 2024 Billing Provider: NELL BANKS MD Common Visit Codes: [id number] DISCH DAY >30min DEON BALDWIN RESIDENT Dec 10, 2024 06:53 NELL BANKS MD Dec 10, 2024 11:27
== END 2024-12-09 13:15 | disposition home or self-care (01) | DRG 203 ==
LOC: ER 09:51 → TELE 15:35 → TELE-CENTR 12-08 01:10
PROVIDERS: ADMIT Internal Medicine; ATTEND Internal Medicine
DX: R07.89 Other chest pain (principal); D69.6 Thrombocytopenia, unspecified; I27.20 Pulmonary hypertension, unspecified; E88.09 Other disorders of plasma-protein metabolism, not elsewhere classified; J12.9 Viral pneumonia, unspecified; I16.0 Hypertensive urgency; Z20.822 Contact with and (suspected) exposure to COVID-19; R18.8 Other ascites; R00.2 Palpitations; E11.65 Type 2 diabetes mellitus with hyperglycemia; H53.8 Other visual disturbances; I11.9 Hypertensive heart disease without heart failure; R74.01 Elevation of levels of liver transaminase levels; A08.4 Viral intestinal infection, unspecified; K75.81 Nonalcoholic steatohepatitis (NASH)
CPT/HCPCS: 36415; 70450; 71045; 76705; 80048; 80053; 80061; 80320; 81001; 82962; 83036; 84443; 84484; 85025; 87426; 87804; 93005; 93306; 99291; G0378